=== PATIENT | male | born 1950 | race Caucasian/White ===

== ENCOUNTER 2017-05-01 10:19 | Observation (INO) | payer MEDICARE, OTHER ==
[2017-05-01] VITALS (7 sets, daily range): BP systolic 125–173; BP diastolic 88–115; PULSE 67–79; RESP 16–20; TEMP 97.7–98.6; O2SAT 93–99
[~2017-05-01] VITALS: Ht 177.8 cm; Wt 71.0 kg
[~2017-05-01 10:19] MED LIST: ASPI81TA81; BENETAB PO; DULC100C PO; LOSA50TA PO; MOBI7.5T PO; [UNRECOGNIZED DRUG - CODE] PO; [UNRECOGNIZED DRUG - OTHER] PO
[2017-05-01] MEDS ORDERED: ACYC400T PO (10:50)
--- NOTE | 2017-05-01 11:14 | PD ---
HPI Chief Complaint: Neuro Symptoms/ Deficits Time Seen by Provider: 11:05 Travel History International Travel<30 days: No Contact w/Intl Traveler<30days: No Traveled to known affect area: No History of Present Illness HPI 66-year-old male with history of hypertension, presents to the ER today because he states that he woke up this morning, drove himself to the office and when he got to the office could not remember any of his coworkers names, or his 's phone number. He had no difficulty walking or talking, had no numbness or weakness, or other symptoms. He states that while he has been waiting in the ER , the symptoms are clearing up and he is remembering more people's names. Modifying Factors: None Associated Signs & Symptoms: Disorientation episode Risk Factors: None PFSH Past Medical History Anxiety: Yes Cancer: No Cardiovascular Problems: No Diabetes: No Diminished Hearing: Yes Endocrine: No Genitourinary: No Hepatitis: No Hiatal Hernia: No Hypertension: Yes Immune Disorder: No Musculoskeletal: Yes (ARTHRITIS) Neurologic: No Psychiatric: Yes (VERY CLAUSTROPHOBIC) Reproductive: No Respiratory: Yes (SINUSITIS) Thyroid Disease: No Tetanus Vaccination: > 5 Years ?: Not Past Surgical History AICD: No Body Medical Devices: CERVICAL FUSION Eye Surgery: Yes (REMOVED PTRYGIM L EYE, CATARACT RIGHT EYE) Joint Replacement: Yes (RIGHT HIP) Oral Surgery: Yes (TONSILECTOMY) Pacemaker: No Tonsillectomy: Yes Other Surgery: Yes (NECK FUSION C2-5 2002) Social History Alcohol Use: Yes (liquor nightly) Tobacco Use: No Substance Use: No Allergies-Medications (Allergen,Severity, Reaction): Coded Allergies: Sugars, Metabolically Active (Unverified Adverse Reaction, Intermediate, MUCOUS, 05/01/17) lactose (Unverified Adverse Reaction, Intermediate, MUCOUS, 05/01/17) Reported Meds & Prescriptions Reported Meds & Active Scripts Active Reported Acyclovir 400 Mg Tab 400 Mg PO WEEKLY Dulcolax Stool Softener (Docusate Sodium) 100 Mg Cap 100 Mg PO DAILY Losartan (Losartan Potassium) 50 Mg Tab 50 Mg PO DAILY Aspir-81 (Aspirin) 81 Mg Tabdr [Gh3] 1 Dose PO DAILY [Smooth Move] 1 Dose PO HS Review of Systems Except as stated in HPI: all other systems reviewed are Neg Physical Exam Narrative GENERAL: Well-developed elderly white male patient currently in mild distress at awake and oriented 3. SKIN: Focused skin assessment warm/dry. HEAD: Atraumatic. Normocephalic. EYES: Pupils equal and round. No scleral icterus. No injection or drainage. ENT: No nasal bleeding or discharge. Mucous membranes pink and moist. NECK: Trachea midline. No JVD. CARDIOVASCULAR: Regular rate and rhythm. No murmur appreciated. RESPIRATORY: No accessory muscle use. Clear to auscultation. Breath sounds equal bilaterally. GASTROINTESTINAL: Abdomen soft, non-tender, nondistended. Hepatic and splenic margins not palpable. MUSCULOSKELETAL: No obvious deformities. No clubbing. No cyanosis. No edema. NEUROLOGICAL: Awake and alert. No obvious cranial nerve deficits. Motor grossly within normal limits. Normal speech. No pronator drift. PSYCHIATRIC: Appropriate mood and affect; insight and judgment normal. Data Data Last Documented VS Vital Signs Date Time Temp Pulse Resp B/P (MAP) Pulse Ox O2 Delivery O2 Flow Rate FiO2 05/01/17 11:15 77 20 159/115 (130) 93 05/01/17 10:20 98.6 Room Air Orders Orders Prothrombin Time / Inr (Pt) (05/01/17 11:05) Act Partial Throm Time (Ptt) (05/01/17 11:05) Complete Blood Count With Diff (05/01/17 11:05) Comprehensive Metabolic Panel (05/01/17 11:05) Drug Screen, Random Urine (05/01/17 11:05) Troponin I (05/01/17 11:05) Urinalysis - C+S If Indicated (05/01/17 11:05) Ct Brain W/O Iv Contrast(Rout) (05/01/17 11:05) Ecg Monitoring (05/01/17 11:05) Iv Access Insert/Monitor (05/01/17 11:05) Oximetry (05/01/17 11:05) Sodium Chloride 0.9% Flush (Ns Flush) (05/01/17 11:15) Admit Order (Ed Use Only) (05/01/17 13:11) Aspirin (Aspirin) (05/01/17 13:15) Labs Laboratory Tests Test 05/01/17 11:10 White Blood Count 7.8 TH/MM3 Red Blood Count 4.31 MIL/MM3 Hemoglobin 14.5 GM/DL Hematocrit 42.7 % Mean Corpuscular Volume 99.1 FL Mean Corpuscular Hemoglobin 33.8 PG Mean Corpuscular Hemoglobin Concent 34.1 % Red Cell Distribution Width 13.5 % Platelet Count 282 TH/MM3 Mean Platelet Volume 7.5 FL Neutrophils (%) (Auto) 69.9 % Lymphocytes (%) (Auto) 17.6 % Monocytes (%) (Auto) 11.0 % Eosinophils (%) (Auto) 0.3 % Basophils (%) (Auto) 1.2 % Neutrophils # (Auto) 5.4 TH/MM3 Lymphocytes # (Auto) 1.4 TH/MM3 Monocytes # (Auto) 0.9 TH/MM3 Eosinophils # (Auto) 0.0 TH/MM3 Basophils # (Auto) 0.1 TH/MM3 CBC Comment DIFF FINAL Differential Comment Prothrombin Time 10.9 SEC Prothromb Time International Ratio 1.0 RATIO Activated Partial Thromboplast Time 25.5 SEC Urine Color YELLOW Urine Turbidity CLEAR Urine pH 5.5 Urine Specific [place] 1.024 Urine Protein TRACE mg/dL Urine Glucose (UA) NEG mg/dL Urine Ketones NEG mg/dL Urine Occult Blood SMALL Urine Nitrite NEG Urine Bilirubin NEG Urine Urobilinogen LESS THAN 2.0 MG/DL Urine Leukocyte Esterase NEG Urine RBC 3 /hpf Urine WBC 1 /hpf Urine Hyaline Casts 1 /lpf Urine Mucus FEW /lpf Microscopic Urinalysis Comment CATH-CULT NOT IND Blood Urea Nitrogen 17 MG/DL Creatinine 1.05 MG/DL Random Glucose 110 MG/DL Total Protein 7.7 GM/DL Albumin 3.8 GM/DL Calcium Level 8.8 MG/DL Alkaline Phosphatase 82 U/L Aspartate Amino Transf (AST/SGOT) 17 U/L Alanine Aminotransferase (ALT/SGPT) 21 U/L Total Bilirubin 0.5 MG/DL Sodium Level 138 MEQ/L Potassium Level 4.3 MEQ/L Chloride Level 105 MEQ/L Carbon Dioxide Level 25.2 MEQ/L Anion Gap 8 MEQ/L Estimat Glomerular Filtration Rate 71 ML/MIN Troponin I LESS THAN 0.02 NG/ML Urine Opiates Screen NEG Urine Barbiturates Screen NEG Urine Amphetamines Screen NEG Urine Benzodiazepines Screen NEG Urine Cocaine Screen NEG Urine Cannabinoids Screen NEG MDM Medical Decision Making Medical Screen Exam Complete: Yes Emergency Medical Condition: Yes Medical Record Reviewed: Yes Interpretation(s) EKG shows NSR, no ST elevation or depression, and no arrhythmias. No significant T-wave inversions. Last [address] 05/01/17 1105 Signed Impressions: Service Date/Time: Monday, May 01, 2017 11:35 - CONCLUSION: 1. No acute intracranial abnormality. 2. Isolated lucency involving the calvarium as detailed above. I cannot exclude such etiologies as multiple myeloma or less likely metastatic disease. Foreign Diaz Jr., MD Laboratory Tests Test 05/01/17 11:10 Red Blood Count 4.31 MIL/MM3 (4.50-5.90) Monocytes (%) (Auto) 11.0 % (0.0-8.0) Urine Occult Blood SMALL (NEG) Urine Mucus FEW /lpf (OCC) Random Glucose 110 MG/DL (74-106) Estimat Glomerular Filtration Rate 71 ML/MIN (>89) Troponin I LESS THAN 0.02 NG/ML Differential Diagnosis Altered mental status episode: TIA versus CVA versus ICH versus metabolic issues Narrative Course CAT scan does not show any signs of acute intracranial processes. EKG did not show dysrhythmias. Lab work was otherwise unremarkable. Case was discussed with Dr. Farmer who is patient's PCP and he agrees the patient should be admitted for further evaluation MRI. Case was discussed with Dr. Montague for admission. Diagnosis Primary Impression: TIA (transient ischemic attack) Admitting Information Admitting Physician Requests: Admit Vero North MD May 01, 2017 11:14
[2017-05-01] MEDS ORDERED: SODIUM CHLORIDE 0.9% FLUSH 10 ML FLUSH IVF PRN (11:15)
[2017-05-01 11:32] LABS: AUTOMATED NEUTROPHIL # 5.4 TH/MM3 (1.8-7.7); BASOPHIL # 0.1 TH/MM3 (0-0.2); BASOPHIL % 1.2 % (0.0-2.0); EOSINOPHIL % 0.3 % (0.0-4.0); HEMATOCRIT 42.7 % (39.0-51.0); HEMO FLAGS DIFF FINAL; LYMPH % 17.6 % (9.0-44.0); LYMPHOCYTE # 1.4 TH/MM3 (1.0-4.8); MEAN CELL VOLUME 99.1 FL (80.0-100.0); MEAN CORPUSCULAR HEMOGLOBIN 33.8 PG (27.0-34.0); MEAN CORPUSCULAR HGB CONC 34.1 % (32.0-36.0); NEUT % 69.9 % (16.0-70.0); PLATELET COUNT 282 TH/MM3 (150-450); RED BLOOD COUNT 4.31 MIL/MM3 (4.50-5.90); RED CELL DISTRIBUTION WIDTH 13.5 % (11.6-17.2); WHITE BLOOD COUNT 7.8 TH/MM3 (4.0-11.0)
[2017-05-01 11:34] LABS: BLOOD, URINE SMALL (NEG); GLUCOSE,URINE NEG (NEG); HYALINE CAST, URINE 1 /lpf (RARE); KETONE, URINE NEG (NEG); MUCUS URINE FEW /lpf (OCC); NITRITE,URINE NEG (NEG); PH, URINE 5.5 (5.0-8.5); URINE COLOR YELLOW (YELLW/STRAW)
[2017-05-01 11:35] LABS: COMMENT (UR) CATH-CULT NOT IND; CULTURE IF INDICATED CATH CULTURE NOT IND
[2017-05-01 11:47] LABS: ALT (GPT) 21 U/L (12-78); ANION GAP 8 MEQ/L (5-15); APTT (PATIENT) 25.5 SEC (24.3-30.1); AST (GOT) 17 U/L (15-37); BICARBONATE 25.2 MEQ/L (21.0-32.0); BLOOD UREA NITROGEN 17 MG/DL (7-18); CHLORIDE 105 MEQ/L (98-107); GLOMERULAR FILTRATION RATE 71 ML/MIN (>89); POTASSIUM 4.3 MEQ/L (3.5-5.1); PROTHROMBIN TIME - PATIENT 10.9 SEC (9.8-11.6); SODIUM (NA) 138 MEQ/L (136-145)
[2017-05-01 11:51] LABS: ALKALINE PHOSPHATASE 82 U/L (45-117); TOTAL BILIRUBIN ADULT 0.5 MG/DL (0.2-1.0)
--- NOTE | 2017-05-01 11:53 | RADRPT ---
EXAM DATE/TIME: 05/01/2017 11:35 [facility] COMPARISON: No previous studies available for comparison. INDICATIONS : Altered mental status. RADIATION DOSE: 56.40 CTDIvol (mGy) MEDICAL HISTORY : Hypertension. SURGICAL HISTORY : Fusion, cervical. ENCOUNTER: Initial ACUITY: 1 day PAIN SCALE: 0/10 LOCATION: cranial TECHNIQUE: Multiple contiguous axial images were obtained of the head. Using automated exposure control and adj ustment of the mA and/or kV according to patient size, radiation dose was kept as low as reasonably a chievable to obtain optimal diagnostic quality images. DICOM format image data is available electro nically for review and comparison. FINDINGS: CEREBRUM: The ventricles are normal for age. No evidence of midline shift, mass lesion, hemorrhage or acute in farction. No extra-axial fluid collections are seen. POSTERIOR FOSSA: The cerebellum and brainstem are intact. The 4th ventricle is midline. The cerebellopontine angle i s unremarkable. EXTRACRANIAL: The visualized portion of the orbits is intact. SKULL: There is an isolated 1 cm lucency involving the left parietal bone near the vertex. No associated sof t tissue component. The calvarium is otherwise intact. CONCLUSION: 1. No acute intracranial abnormality. 2. Isolated lucency involving the calvarium as detailed above. I cannot exclude such etiologies as mu ltiple myeloma or less likely metastatic disease. Foreign Diaz Jr., MD on May 01, 2017 at 11:48 Board Certified Radiologist. This report was verified electronically.
[2017-05-01] MEDS ORDERED: LACTULOSE SYRUP 20 GM/30 ML CUP PO PRN (13:15)
[2017-05-01] MEDS ORDERED: ASPIRIN 325 MG TAB PO ONE (13:15)
[2017-05-01] MEDS ORDERED: NALOXONE HCL 0.4 MG/ML AMP IV PUSH PRN (13:15)
[2017-05-01] MEDS ORDERED: MAGNESIUM HYDROXIDE SUSP 30 ML CUP PO PRN (13:15)
[2017-05-01] MEDS ORDERED: ONDANSETRON HCL 4 MG/2 ML VIAL IVP PRN (13:15)
[2017-05-01] MEDS ORDERED: SODIUM CHLORIDE 0.9% FLUSH 10 ML FLUSH IV FLUSH PRN (13:15)
[2017-05-01] MEDS ORDERED: ACETAMINOPHEN 325 MG TAB PO PRN (13:15)
[2017-05-01] MEDS ORDERED: BISACODYL 10 MG SUPP RECTAL PRN (13:15)
[2017-05-01] MEDS ORDERED: SENNOSIDES 8.6 MG TAB PO PRN (13:15)
--- NOTE | 2017-05-01 14:09 | HHI.HP ---
HPI Service [facility] Primary Care Physician Derrek Farmer MD, PhD Admission Diagnosis possible TIA Diagnoses: Chief Complaint: Memory loss Travel History International Travel<30 Days: No Contact w/Intl Traveler <30 Da: No Traveled to Known Affected Are: No History of Present Illness Written by Lianet Donohue, acting as scribe for Dr. Montague on 05/01/17 at 14: 08. This note was transcribed by scribe Lianet Donohue PA-C. I, Dr. Naren Montague personally performed the history, physical exam, and medical decision making; and confirmed the accuracy of the information in the transcribed note. Authenticated by Dr. Naren Montague on 05/01/17 at 14:10. This is a 66-year-old male with past medical history significant for hypertension and IBS who presents to [facility] ED with complaints of transient memory loss x 1 day. Patient states he awoke around 7:00 this morning and reports that he felt "fuzzy". Patient arrived at work around 9am. He states he was able to recognize the faces of his coworkers but was not able to recall their names. He was unable to recall his 's phone number. Patient denies any numbness/tingling or weakness. He denies any slurred speech or facial asymmetry. He states since his admission to the ED, his memory has improved. He reports a similar episode last week when he was unable to recall the name of his dog he's had for the past 5 years. Patient takes Losartan for blood pressure. He reports taking aspirin at home irregularly. In the ED, EKG was reviewed which showed PVCs but no evidence of other arrhythmia. Head CT revealed isolated lucency involving the calvarium. Patient endorses history of claustrophobia and is requesting something to help him relax for the MRI study. Review of Systems Except as stated in HPI: all other systems reviewed are Neg Past Family Social History Past Medical History HTN IBS Past Surgical History Right total hip replacement IM rodding left femur fracture with subsequent hardware removal Cervical spine fusion Reported Medications Acyclovir 400 Mg Tab 400 Mg PO WEEKLY Dulcolax Stool Softener (Docusate Sodium) 100 Mg Cap 100 Mg PO DAILY Losartan (Losartan Potassium) 50 Mg Tab 50 Mg PO DAILY Aspir-81 (Aspirin) 81 Mg Tabdr [Gh3] 1 Dose PO DAILY [Smooth Move] 1 Dose PO HS Allergies: Coded Allergies: Sugars, Metabolically Active (Unverified Adverse Reaction, Intermediate, MUCOUS, 05/01/17) lactose (Unverified Adverse Reaction, Intermediate, MUCOUS, 05/01/17) Active Ordered Medications Current Medications Medications (Trade) Dose Ordered Sig/Genia Route Start Time Stop Time Status Last Admin (NS Flush) 2 ml UNSCH PRN IV FLUSH 05/01/17 13:15 (NS Flush) 2 ml BID IV FLUSH 05/01/17 21:00 (Tylenol) 650 mg Q4H PRN PO 05/01/17 13:15 UNV (Zofran Inj) 4 mg Q6H PRN IVP 05/01/17 13:15 (Narcan Inj) 0.4 mg UNSCH PRN IV PUSH 05/01/17 13:15 (Ya-Colace) 1 tab BID PO 05/01/17 21:00 UNV (Milk Of Magnesia Liq) 30 ml Q12H PRN PO 05/01/17 13:15 UNV (Senokot) 17.2 mg Q12H PRN PO 05/01/17 13:15 UNV (Dulcolax Supp) 10 mg DAILY PRN RECTAL 05/01/17 13:15 (Lactulose Liq) 30 ml DAILY PRN PO 05/01/17 13:15 (Cozaar) 50 mg DAILY PO 05/02/17 09:00 UNV (Ativan Inj) 1 mg ONCE PRN IV PUSH 05/01/17 14:15 UNV Family History Dementia, both parents Social History Patient denies any tobacco use. He admits to alcohol consumption of "a couple of drinks nightly". He denies any illicit drug use. 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 Physical Exam Vital Signs Vital Signs Date Time Temp Pulse Resp B/P (MAP) Pulse Ox O2 Delivery O2 Flow Rate FiO2 05/01/17 12:00 76 20 146/101 (116) 94 05/01/17 11:15 77 20 159/115 (130) 93 05/01/17 10:20 98.6 79 16 173/90 117) 99 Room Air Physical Exam GENERAL: This is a well-nourished, well-developed patient, in no apparent distress. Awake and alert. No facial asymmetry appreciated. SKIN: No rashes, ecchymoses or lesions. Cool and dry. HEAD: Atraumatic. Normocephalic. No temporal or scalp tenderness. EYES: Pupils equal round and reactive. Extraocular motions intact. No scleral icterus. No injection or drainage. ENT: Nose without bleeding, purulent drainage. Throat without erythema, tonsillar hypertrophy or exudate. Uvula midline. Airway patent. NECK: Trachea midline. No lymphadenopathy. Supple, nontender, no meningeal signs. CARDIOVASCULAR: Regular rate and rhythm without murmurs, gallops, or rubs. (+) PVCs. RESPIRATORY: Clear to auscultation. Breath sounds equal bilaterally. No wheezes , rales, or rhonchi. GASTROINTESTINAL: Abdomen soft, non-tender, nondistended. No hepato-splenomegaly , or palpable masses. No guarding. MUSCULOSKELETAL: Extremities without clubbing, cyanosis, or edema. No joint tenderness, effusion, or edema noted. No calf tenderness. NEUROLOGICAL: Awake and alert. Motor and sensory function grossly intact in bilateral upper and lower extremities. Normal speech. Laboratory Laboratory Tests Test 05/01/17 11:10 White Blood Count 7.8 Red Blood Count 4.31 Hemoglobin 14.5 Hematocrit 42.7 Mean Corpuscular Volume 99.1 Mean Corpuscular Hemoglobin 33.8 Mean Corpuscular Hemoglobin Concent 34.1 Red Cell Distribution Width 13.5 Platelet Count 282 Mean Platelet Volume 7.5 Neutrophils (%) (Auto) 69.9 Lymphocytes (%) (Auto) 17.6 Monocytes (%) (Auto) 11.0 Eosinophils (%) (Auto) 0.3 Basophils (%) (Auto) 1.2 Neutrophils # (Auto) 5.4 Lymphocytes # (Auto) 1.4 Monocytes # (Auto) 0.9 Eosinophils # (Auto) 0.0 Basophils # (Auto) 0.1 CBC Comment DIFF FINAL Differential Comment Prothrombin Time 10.9 Prothromb Time International Ratio 1.0 Activated Partial Thromboplast Time 25.5 Urine Color YELLOW Urine Turbidity CLEAR Urine pH 5.5 Urine Specific [place] 1.024 Urine Protein TRACE Urine Glucose (UA) NEG Urine Ketones NEG Urine Occult Blood SMALL Urine Nitrite NEG Urine Bilirubin NEG Urine Urobilinogen LESS THAN 2.0 Urine Leukocyte Esterase NEG Urine RBC 3 Urine WBC 1 Urine Hyaline Casts 1 Urine Mucus FEW Microscopic Urinalysis Comment CATH-CULT NOT IND Blood Urea Nitrogen 17 Creatinine 1.05 Random Glucose 110 Total Protein 7.7 Albumin 3.8 Calcium Level 8.8 Alkaline Phosphatase 82 Aspartate Amino Transf (AST/SGOT) 17 Alanine Aminotransferase (ALT/SGPT) 21 Total Bilirubin 0.5 Sodium Level 138 Potassium Level 4.3 Chloride Level 105 Carbon Dioxide Level 25.2 Anion Gap 8 Estimat Glomerular Filtration Rate 71 Troponin I LESS THAN 0.02 Urine Opiates Screen NEG Urine Barbiturates Screen NEG Urine Amphetamines Screen NEG Urine Benzodiazepines Screen NEG Urine Cocaine Screen NEG Urine Cannabinoids Screen NEG Result Diagram: 05/01/17 1110 05/01/17 1110 Imaging Last Impressions Head CT 05/01/17 1105 Signed Impressions: Service Date/Time: Monday, May 01, 2017 11:35 - CONCLUSION: 1. No acute intracranial abnormality. 2. Isolated lucency involving the calvarium as detailed above. I cannot exclude such etiologies as multiple myeloma or less likely metastatic disease. Foreign Diaz Jr., MD Caprincorey VTE Risk Assessment Caprini VTE Risk Assessment: Mod/High Risk (score >= 2) Caprini Risk Assessment Model Point Value = 1 Point Value = 2 Point Value = 3 Point Value = 5 Age 41-60 Minor surgery BMI > 25 kg/m2 Swollen legs Varicose veins or History of unexplained or recurrent spontaneous Oral contraceptives or hormone replacement Sepsis (< 1 month) Serious lung disease, including pneumonia (< 1 month) Abnormal pulmonary function Acute myocardial infarction Congestive heart failure (< 1 month) History of inflammatory bowel disease Medical patient at bed rest Age 61-74 Arthroscopic surgery Major open surgery (> 45 min) Laparoscopic surgery (> 45 min) Malignancy Confined to bed (> 72 hours) Immobilizing plaster cast Central venous access Age >= 75 History of VTE Family history of VTE Factor V Leiden Prothrombin [id number] Lupus anticoagulant Anticardiolipin antibodies Elevated serum homocysteine Heparin-induced thrombocytopenia Other congenital or acquired thrombophilia Stroke (< 1 month) Elective arthroplasty Hip, pelvis, or leg fracture Acute spinal cord injury (< 1 month) Prophylaxis Regimen Total Risk Factor Score Risk Level Prophylaxis Regimen 0-1 Low Early ambulation 2 Moderate Order ONE of the following: *Sequential Compression Device (SCD) *Heparin 5000 units SQ BID 3-4 Higher Order ONE of the following medications: *Heparin 5000 units SQ TID *Enoxaparin/Lovenox 40 mg SQ daily (WT < 150 kg, CrCl > 30 mL/min) *Enoxaparin/Lovenox 30 mg SQ daily (WT < 150 kg, CrCl > 10-29 mL/min) *Enoxaparin/Lovenox 30 mg SQ BID (WT < 150 kg, CrCl > 30 mL/min) AND/OR *Sequential Compression Device (SCD) 5 or more Highest Order ONE of the following medications: *Heparin 5000 units SQ TID (Preferred with Epidurals) *Enoxaparin/Lovenox 40 mg SQ daily (WT < 150 kg, CrCl > 30 mL/min) *Enoxaparin/Lovenox 30 mg SQ daily (WT < 150 kg, CrCl > 10-29 mL/min) *Enoxaparin/Lovenox 30 mg SQ BID (WT < 150 kg, CrCl > 30 mL/min) AND *Sequential Compression Device (SCD) Assessment and Plan Problem List: (1) TGA (transient global amnesia) ICD Code: G45.4 - Transient global amnesia Status: Acute (2) TIA (transient ischemic attack) ICD Code: G45.9 - Transient cerebral ischemic attack, unspecified Status: Acute Assessment and Plan 66-year-old male with past medical history significant for hypertension and IBS who presents to [facility] ED with complaints of transient memory loss x 1 day. Transient global amnesia - Possible TIA/CVA - Consult Neurology - CT of the head personally reviewed showing I for the lucency involving the calvarium possible etiology of multiple myeloma or less likely metastatic disease. Discussed finding with the patient. Will order bone survey for further evaluation. - Obtain MRI and MRA of the brain. Ultrasound carotid arteries ordered. IV Ativan ordered to help with claustrophobia for MRI study. - Continuous cardiac monitoring - Neuro checks every 4 hours - Obtain fasting lipid profile - Aspirin 81 mg daily Hypertension - BP elevated in the ED - Continue patient on home dose of losartan - Monitor BP IBS - Stable - Monitor DVT prophylaxis - Bilateral SCD/BIGG parsone Discussed Condition With Patient, ED physician Lianet Donohue May 01, 2017 14:09 Jay Montague DO May 01, 2017 14:10
[2017-05-01] MEDS ORDERED: LORazepam 2 MG/ML VIAL IV PUSH PRN (14:15)
--- NOTE | 2017-05-01 15:39 | PD.CONS ---
History of Present Illness Service Neurology Consult Requested By medical Reason for Consult confusion Primary Care Physician Derrek Farmer MD, PhD History of Present Illness 66-year-old male admitted for transient memory loss. He states he was able to recognize the faces of his coworkers but was not able to recall their names. He was unable to recall his 's phone number. Patient denies any numbness/tingling or weakness. He denies any slurred speech or facial asymmetry. last week he forget raphael names of his dogs. no weakness/sensory changes/vision loss/headache associated with this. feels well at present. ++hx of dementia in both parents. in their 80's. glucose 110. ct brain- possible calvarial lesion. does not take aspirin qdaily Review of Systems Except as stated in HPI: all other systems reviewed are Neg Past Family Social History Past Medical History HTN IBS Past Surgical History Right total hip replacement IM rodding left femur fracture with subsequent hardware removal Cervical spine fusion Reported Medications Acyclovir 400 Mg Tab 400 Mg PO WEEKLY Dulcolax Stool Softener (Docusate Sodium) 100 Mg Cap 100 Mg PO DAILY Losartan (Losartan Potassium) 50 Mg Tab 50 Mg PO DAILY Aspir-81 (Aspirin) 81 Mg Tabdr [Gh3] 1 Dose PO DAILY [Smooth Move] 1 Dose PO HS Allergies: Coded Allergies: Sugars, Metabolically Active (Unverified Adverse Reaction, Intermediate, MUCOUS, 05/01/17) lactose (Unverified Adverse Reaction, Intermediate, MUCOUS, 05/01/17) Family History Dementia, both parents Social History Patient denies any tobacco use. He admits to alcohol consumption of "a couple of drinks nightly". He denies any illicit drug use. 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 Review of Systems All other ROS: ROS reviewed as documented in chart Past Family Social History Allergies: Coded Allergies: Sugars, Metabolically Active (Unverified Adverse Reaction, Intermediate, MUCOUS, 05/01/17) lactose (Unverified Adverse Reaction, Intermediate, MUCOUS, 05/01/17) Active Ordered Medications Current Medications Medications (Trade) Dose Ordered Sig/Genia Route Start Time Stop Time Status Last Admin (NS Flush) 2 ml UNSCH PRN IV FLUSH 05/01/17 13:15 (NS Flush) 2 ml BID IV FLUSH 05/01/17 21:00 (Tylenol) 650 mg Q4H PRN PO 05/01/17 13:15 (Zofran Inj) 4 mg Q6H PRN IVP 05/01/17 13:15 (Narcan Inj) 0.4 mg UNSCH PRN IV PUSH 05/01/17 13:15 (Ya-Colace) 1 tab BID PO 05/01/17 21:00 (Milk Of Magnesia Liq) 30 ml Q12H PRN PO 05/01/17 13:15 (Senokot) 17.2 mg Q12H PRN PO 05/01/17 13:15 (Dulcolax Supp) 10 mg DAILY PRN RECTAL 05/01/17 13:15 (Lactulose Liq) 30 ml DAILY PRN PO 05/01/17 13:15 (Cozaar) 50 mg DAILY PO 05/02/17 09:00 (Ativan Inj) 1 mg UNSCH X1 PRN IV PUSH 05/01/17 14:15 05/01/17 23:59 (Ecotrin Ec) 81 mg DAILY PO 05/02/17 09:00 Exam I&O / VS Vital Signs Date Time Temp Pulse Resp B/P (MAP) Pulse Ox O2 Delivery O2 Flow Rate FiO2 05/01/17 14:31 98.4 67 16 148/90 (109) 97 05/01/17 14:23 05/01/17 12:00 76 20 146/101 (116) 94 05/01/17 11:15 77 20 159/115 (130) 93 05/01/17 10:20 98.6 79 16 173/90 (117) 99 Room Air General: Alert and Oriented, No acute distress Eye: EOMI Respiratory: Non-labored respirations Musculoskeletal: ROM Neurologic: Alert, Oriented, Normal sensory, Normal motor, No focal defects, CN II-XII intact, Normal DTR's Psychiatric: Cooperative, Appropriate mood & affect, Normal judgement, Non- suicidal Review/Management Diagnosis/Plan: (1) TGA (transient global amnesia) ICD Codes: G45.4 - Transient global amnesia Status: Acute Plan: etiology: possibly temporal lobe tia vs partial sz. however, i suspect this w/u is going to be negative. ?calvarial lesion- incidental finding? doubt relationship to event. no meningeal signs or symptoms would be concerned about memory lapses occurring related to developing an amnestic mci neuro exam non-focal recs tia w/u ?calvarial lesion aspirin qd eeg d/c planning after above and further outpatient cognitive testing (2) TIA (transient ischemic attack) ICD Codes: G45.9 - Transient cerebral ischemic attack, unspecified Status: Acute Sae Krause MD May 01, 2017 15:39
--- NOTE | 2017-05-01 15:53 | RADRPT ---
EXAM DATE/TIME: 05/01/2017 15:15 [facility] COMPARISON: No previous studies available for comparison. INDICATIONS : Evaluate for bone metastasis. MEDICAL HISTORY : TIA SURGICAL HISTORY : unknown ENCOUNTER: Initial ACUITY: 1 week PAIN SCORE: 0/10 LOCATION: Whole body bone survey FINDINGS: Bone survey was performed of the axial and appendicular skeleton. There is a single lytic lesion involving the left parietal bone of the calvarium. The lytic lesion me asures approximately 1.7 centimeters. The rest the calvarium is intact. There is diffuse primary bony degenerative changes throughout the cervical spine, thoracic spine and lumbar spine. No gross lytic or blastic lesions are seen. There is evidence of previous surgery to th e cervical spine. The bony structures of the ribs are grossly intact. There are some chronic changes involving the righ t clavicle. The pelvis is grossly intact. There is a right hip prosthesis in place. Abnormal appearance involving the mid shaft of the left femur. CONCLUSION: 1. Single well-defined lytic lesion involving the left parietal bone. 2. Abnormal appearance of the midshaft of the left femur. This could be from old healed infection wilfred evie previous trauma versus metastases. 3. Diffuse primary degenerative changes involving the cervical, thoracic and lumbar spine. Josesito Chavez MD on May 01, 2017 at 15:46 Board Certified Radiologist. This report was verified electronically.
--- NOTE | 2017-05-01 18:28 | RADRPT ---
EXAM DATE/TIME: 05/01/2017 17:20 [facility] COMPARISON: CT BRAIN W/O CONTRAST, May 01, 2017, 11:35. INDICATIONS : CVA. Abnormal CT. MEDICAL HISTORY : Hypertension. SURGICAL HISTORY : Fusion, cervical. Left hip. ENCOUNTER: Subsequent ACUITY: 1 day PAIN SCORE: 3/10 LOCATION: cranial Please note a normal MRA of the brain does not entirely exclude the possibility of a small aneurysm, nor the possibility of distal intracranial vessel disease. TECHNIQUE: 3D time of flight MRA was performed. Source images, multiplanar STS MIP, and 3D volume MIP reconstru ctions were reviewed. FINDINGS: No significant vascular malformations, vessel truncation or aneurysmal dilatations are seen except fo r slight atherosclerotic changes involving multiple branches mainly in the left [employer]ICATION [employer]S INSTRUCTOR. 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 Hipolito Waldrop MD on May 01, 2017 at 18:24 Board Certified Radiologist. This report was verified electronically.
--- NOTE | 2017-05-01 20:57 | RADRPT ---
EXAM DATE/TIME: 05/01/2017 20:23 [facility] COMPARISON: No previous studies available for comparison. INDICATIONS : Cerebrovascular accident. MEDICAL HISTORY : Hypertension. IBS. Sinusitis. SURGICAL HISTORY : Tonsillectomy. Orthopedic surgery, neck, right hip, and left femur. C3-4 posterior fusion. Prosta te biopsy. ENCOUNTER: Initial ACUITY: 1 day PAIN SCORE: 2/10 LOCATION: Bilateral neck PEAK SYSTOLIC VELOCITIES (cm/sec): ICA/CCA RATIO: Right: 0.6 Left: 0.9 ICA: Right: 43.8 Left: 54.8 CCA: Right: 75.0 Left: 60.7 ECA: Right: 91.9 Left: 83.8 VERTEBRAL: Right: 34.0 antegrade Left: 62.9 antegrade Elevated flow velocities and ICA/CCA ratios have been found to correlate with increased degrees of vessel stenosis, calculated as percentage of diameter relative to a normal segment of distal ICA/CCA FINDINGS: Antegrade flow is seen in both vertebral arteries. There is mild to moderate atherosclerotic plaquing at the origin of both ICAs without any significant stenosis. CONCLUSION: No evidence for hemodynamically significant stenosis. Hipolito Waldrop MD on May 01, 2017 at 20:54 Board Certified Radiologist. This report was verified electronically.
[2017-05-01] MEDS: DOCUSATE SODIUM 50 MG/SENNA 8.6 MG TAB PO SCH (21:23)
[2017-05-01] MEDS: SODIUM CHLORIDE 0.9% FLUSH 10 ML FLUSH IV FLUSH SCH (21:25)
[2017-05-02] MEDS ORDERED: LORATADINE 10 MG TAB PO ONE (00:15)
[2017-05-02 03:43] VITALS: BP 130/88; PULSE 63; RESP 18; TEMP 98.1; O2SAT 97
[2017-05-02] MEDS ORDERED: LORazepam 2 MG/ML VIAL IV PUSH ONE (07:45)
[2017-05-02 07:54] VITALS: BP 163/100; PULSE 82; RESP 20; TEMP 98; O2SAT 99
[2017-05-02 08:10] VITALS: BP 150/90
--- NOTE | 2017-05-02 08:20 | HHI.PR ---
Review/Management Diagnosis/Plan: (1) TGA (transient global amnesia) ICD Codes: G45.4 - Transient global amnesia Status: Acute Plan: etiology: possibly temporal lobe tia vs partial sz. however, i suspect this w/u is going to be negative. ?calvarial lesion- incidental finding? doubt relationship to event. no meningeal signs or symptoms would be concerned about memory lapses occurring related to developing an amnestic mci neuro exam non-focal mra brain/carotid u/s- no significant occlusion/stenosis recs tests pending tia w/u- mri brain, lipid,echo pending ?calvarial lesion- may need onc eval- defer to medical aspirin qd eeg-pending d/c planning after above and further outpatient cognitive testing (2) TIA (transient ischemic attack) ICD Codes: G45.9 - Transient cerebral ischemic attack, unspecified Status: Acute Subjective Subjective Comments No acute events reported No headache No chest pain No dyspnea Active Medications Current Medications Medications (Trade) Dose Ordered Sig/Genia Route Start Time Stop Time Status Last Admin (NS Flush) 2 ml UNSCH PRN IV FLUSH 05/01/17 13:15 05/01/17 16:57 (NS Flush) 2 ml BID IV FLUSH 05/01/17 21:00 05/01/17 21:25 (Tylenol) 650 mg Q4H PRN PO 05/01/17 13:15 (Zofran Inj) 4 mg Q6H PRN IVP 05/01/17 13:15 (Narcan Inj) 0.4 mg UNSCH PRN IV PUSH 05/01/17 13:15 (Ya-Colace) 1 tab BID PO 05/01/17 21:00 05/01/17 21:23 (Milk Of Magnesia Liq) 30 ml Q12H PRN PO 05/01/17 13:15 (Senokot) 17.2 mg Q12H PRN PO 05/01/17 13:15 (Dulcolax Supp) 10 mg DAILY PRN RECTAL 05/01/17 13:15 (Lactulose Liq) 30 ml DAILY PRN PO 05/01/17 13:15 (Cozaar) 50 mg DAILY PO 05/02/17 09:00 (Ecotrin Ec) 81 mg DAILY PO 05/02/17 09:00 Allergies Allergies Coded Allergies Sugars, Metabolically Active (Unverified Adverse Reaction, Intermediate, MUCOUS, 05/01/17) lactose (Unverified Adverse Reaction, Intermediate, MUCOUS, 05/01/17) Review of Systems All other ROS: ROS reviewed as documented in chart Exam I&O / VS Vital Signs Date Time Temp Pulse Resp B/P (MAP) Pulse Ox O2 Delivery O2 Flow Rate FiO2 05/02/17 08:10 150/90 (110) 05/02/17 07:54 98.0 82 20 163/100 (121) 99 05/02/17 03:43 98.1 63 18 130/88 (102) 97 05/02/17 01:18 Room Air 05/01/17 23:37 97.7 74 18 125/88 (100) 96 05/01/17 20:49 97.8 76 16 142/98 (113) 97 05/01/17 19:09 75 05/01/17 14:31 98.4 67 16 148/90 (109) 97 05/01/17 14:23 05/01/17 12:00 76 20 146/101 (116) 94 05/01/17 11:15 77 20 159/115 (130) 93 05/01/17 10:20 98.6 79 16 173/90 (117) 99 Room Air General: Alert and Oriented, No acute distress Eye: EOMI Respiratory: Non-labored respirations Musculoskeletal: ROM Neurologic: Alert, Oriented, No focal defects, CN II-XII intact Psychiatric: Cooperative, Appropriate mood & affect, Normal judgement Exam Comments looks well, going to mri in wheelchair Objective Micro and Labs Laboratory Tests Test 05/01/17 11:10 05/01/17 17:30 05/01/17 19:31 White Blood Count 7.8 Red Blood Count 4.31 Hemoglobin 14.5 Hematocrit 42.7 Mean Corpuscular Volume 99.1 Mean Corpuscular Hemoglobin 33.8 Mean Corpuscular Hemoglobin Concent 34.1 Red Cell Distribution Width 13.5 Platelet Count 282 Mean Platelet Volume 7.5 Neutrophils (%) (Auto) 69.9 Lymphocytes (%) (Auto) 17.6 Monocytes (%) (Auto) 11.0 Eosinophils (%) (Auto) 0.3 Basophils (%) (Auto) 1.2 Neutrophils # (Auto) 5.4 Lymphocytes # (Auto) 1.4 Monocytes # (Auto) 0.9 Eosinophils # (Auto) 0.0 Basophils # (Auto) 0.1 CBC Comment DIFF FINAL Differential Comment Prothrombin Time 10.9 Prothromb Time International Ratio 1.0 Activated Partial Thromboplast Time 25.5 Urine Color YELLOW Urine Turbidity CLEAR Urine pH 5.5 Urine Specific [place] 1.024 Urine Protein TRACE Urine Glucose (UA) NEG Urine Ketones NEG Urine Occult Blood SMALL Urine Nitrite NEG Urine Bilirubin NEG Urine Urobilinogen LESS THAN 2.0 Urine Leukocyte Esterase NEG Urine RBC 3 Urine WBC 1 Urine Hyaline Casts 1 Urine Mucus FEW Microscopic Urinalysis Comment CATH-CULT NOT IND Blood Urea Nitrogen 17 Creatinine 1.05 Random Glucose 110 Total Protein 7.7 Albumin 3.8 Calcium Level 8.8 Alkaline Phosphatase 82 Aspartate Amino Transf (AST/SGOT) 17 Alanine Aminotransferase (ALT/SGPT) 21 Total Bilirubin 0.5 Sodium Level 138 Potassium Level 4.3 Chloride Level 105 Carbon Dioxide Level 25.2 Anion Gap 8 Estimat Glomerular Filtration Rate 71 Troponin I LESS THAN 0.02 Urine Opiates Screen NEG Urine Barbiturates Screen NEG Urine Amphetamines Screen NEG Urine Benzodiazepines Screen NEG Urine Cocaine Screen NEG Urine Cannabinoids Screen NEG Ammonia 15 Erythrocyte Sedimentation Rate 5 C-Reactive Protein LESS THAN 0.29 Vitamin B12 Level 407 Thyroid Stimulating Hormone 3rd Gen 1.200 Sae Krause MD May 02, 2017 08:20
[2017-05-02] MEDS ORDERED: ASPIRIN EC 81 MG TABEC PO SCH (09:00)
[2017-05-02] MEDS ORDERED: LOSARTAN 50 MG TAB PO SCH (09:00)
[2017-05-02 09:10] LABS: HDL CHOLESTEROL 102.8 MG/DL (40.0-60.0)
[2017-05-02] MEDS: SODIUM CHLORIDE 0.9% FLUSH 10 ML FLUSH IV FLUSH SCH (09:12)
[2017-05-02] MEDS: DOCUSATE SODIUM 50 MG/SENNA 8.6 MG TAB PO SCH (09:12)
--- NOTE | 2017-05-02 09:24 | RADRPT ---
EXAM DATE/TIME: 05/02/2017 08:21 [facility] COMPARISON: CT BRAIN W/O CONTRAST, May 01, 2017, 11:35. INDICATIONS : CVA. Abnormal CT. MEDICAL HISTORY : Hypertension. SURGICAL HISTORY : Fusion, cervical. Left hip. ENCOUNTER: Subsequent ACUITY: 2 day PAIN SCORE: 0/10 LOCATION: head. TECHNIQUE: Multiplanar, multisequence MRI of the brain was performed without contrast. FINDINGS: There is mild central and cortical atrophy with minimal periventricular white matter changes. There is no clinical hemorrhage, acute infarction or mass lesion. Posterior fossa is unremarkable. Orbits and paranasal sinuses are unremarkable. Lucencies in the calvarium appear to be venous lakes. CONCLUSION: Negative for metastatic disease. Central and cortical atrophy with minimal periventr icular matter changes. Negative for acute ischemic event. Santhosh Diego MD FACR on May 02, 2017 at 9:21 Board Certified Radiologist. This report was verified electronically.
[2017-05-02 09:59] VITALS: PULSE 77
[2017-05-02] MEDS ORDERED: THIAMINE HCL 100 MG TAB PO SCH (11:00)
--- NOTE | 2017-05-02 11:30 | HHI.PR ---
Subjective Remarks Patient seen this morning around 10:30 AM. Says he's feeling all right. Had EGD performed. He does report drinking about 4 shots worth of whiskey every night for many many years. He reports a tremor bilaterally for years, which he thought maybe Parkinson's. He says he feels like going home. Says that names is the only thing he forgot. We discussed calvarial lesion which may be secondary to multiple myeloma. Objective Vital Signs Date Time Temp Pulse Resp B/P (MAP) Pulse Ox O2 Delivery O2 Flow Rate FiO2 05/02/17 09:59 77 05/02/17 08:10 150/90 (110) 05/02/17 07:54 98.0 82 20 163/100 (121) 99 05/02/17 03:43 98.1 63 18 130/88 (102) 97 05/02/17 01:18 Room Air 05/01/17 23:37 97.7 74 18 125/88 (100) 96 05/01/17 20:49 97.8 76 16 142/98 (113) 97 05/01/17 19:09 75 05/01/17 14:31 98.4 67 16 148/90 (109) 97 05/01/17 14:23 05/01/17 12:00 76 20 146/101 (116) 94 Result Diagram: 05/01/17 1110 05/01/17 1110 Objective Remarks GENERAL: pt walking in room. Alert and oriented 3. Patient has bilateral tremor. Mild. SKIN: Warm and dry. HEAD: Normocephalic. EYES: No scleral icterus. No injection or drainage. NECK: Supple, trachea midline. No JVD. CARDIOVASCULAR: Regular rate and rhythm without murmurs, gallops, or rubs. RESPIRATORY: Breath sounds equal bilaterally. No accessory muscle use. GASTROINTESTINAL: Abdomen soft, non-tender, nondistended. MUSCULOSKELETAL: No cyanosis, or edema. BACK: Nontender without obvious deformity. No CVA tenderness. A/P Assessment and Plan 66-year-old male with past medical history significant for hypertension and IBS who presents to [facility] ED with complaints of transient memory loss x 1 day. //Transient global amnesia - Possible TIA/CVA - Consult Neurology - CT of the head personally reviewed showing I for the lucency involving the calvarium possible etiology of multiple myeloma or less likely metastatic disease. Discussed finding with the patient. Will order bone survey for further evaluation. - Obtain MRI and MRA of the brain. Ultrasound carotid arteries ordered. IV Ativan ordered to help with claustrophobia for MRI study. - Continuous cardiac monitoring - Neuro checks every 4 hours - Obtain fasting lipid profile. High HDL, normal LDL. -b12 within normal limits. - Aspirin 81 mg daily. EEG pending. //Hypertension - BP elevated in the ED - Continue patient on home dose of losartan - Monitor BP //Excessive alcohol use //Bilateral tremor on exam. Suspect mild alcohol withdrawal.// Patient drinks: 4 whiskey drinks per night. -Give Librium 1 on 05/02. The monitor. Patient will go back to drinking 2 drinks per night, wean down to 1. We discussed the effects of long-term drinking, and he conveys understanding. Have advised him to start on thiamine. //Possible multiple myeloma. //lytic lesion of left parietal bone //Abnormal appearance of the left femur. Possible metastasis. Patient will follow-up with primary care. //IBS - Stable - Monitor //DVT prophylaxis - Bilateral SCD/BIGG juarez Discharge Planning Discharge home when cleared by neurology. EEG is pending. Kenroy Childers MD May 02, 2017 11:30
[2017-05-02] MEDS ORDERED: GNP100TA3 PO (11:36)
[2017-05-02 12:50] VITALS: BP 121/73; PULSE 80; RESP 18; TEMP 97.4; O2SAT 95
--- NOTE | 2017-05-02 12:50 | ECHRPT ---
Indication: CVA/TIA CONCLUSIONS Normal left ventricular size. Wall thickness is measured at the upper limits of normal. The left ventricular systolic function is normal with an estimated ejection fraction in the range of 55-60%. Mitral annular calcification is present. Trace mitral valve regurgitation. BP: 163 / 100 HR: 82 Rhythm: MEASUREMENTS (Male / Female) Normal Values Technical Quality:Good 2D ECHO LV Diastolic Diameter PLAX 4.0 cm 4.2 - 5.9 / 3.9 - 5.3 cm LV Systolic Diameter PLAX 3.1 cm IVS Diastolic Thickness 1.1 cm 0.6 - 1.0 / 0.6 - 0.9 cm LVPW Diastolic Thickness 0.8 cm 0.6 - 1.0 / 0.6 - 0.9 cm LV Relative Wall Thickness 0.5 RV Internal Dim ED PLAX 2.1 cm LA Systolic Diameter LX 3.4 cm 3.0 - 4.0 / 2.7 - 3.8 cm M-MODE Aortic Root Diameter MM 3.2 cm AV Cusp Separation MM 1.8 cm DOPPLER AV Peak Velocity 137.0 cm/s AV Peak Gradient 7.5 mmHg LVOT Peak Velocity 73.1 cm/s LVOT Peak Gradient 2.1 mmHg Mitral E Point Velocity 57.8 cm/s Mitral A Point Velocity 84.4 cm/s Mitral E to A Ratio 0.7 TR Peak Velocity 201.0 cm/s TR Peak Gradient 16.2 mmHg Right Atrial Pressure 10.0 mmHg Pulmonary Artery Systolic Pressu 26.2 mmHg Right Ventricular Systolic Press 26.2 mmHg FINDINGS LEFT VENTRICLE Normal left ventricular size. Wall thickness is measured at the upper limits of normal. The left ventricular systolic function is normal with an estimated ejection fraction in the range of 55-60%. RIGHT VENTRICLE Normal right ventricular size and systolic function. LEFT ATRIUM The left atrial size is normal. RIGHT ATRIUM The right atrial size is normal. ATRIAL SEPTUM Normal atrial septal thickness without atrial level shunting by limited color doppler interrogation. MITRAL VALVE Mitral annular calcification is present. Trace mitral valve regurgitation. AORTIC VALVE Trileaflet aortic valve. No aortic valve stenosis or regurgitation. TRICUSPID VALVE Structurally normal tricuspid valve. No tricuspid valve stenosis or regurgitation. PULMONARY VALVE No pulmonary valve regurgitation or stenosis. VESSELS The inferior vena cava is normal in size. PERICARDIUM No pericardial effusion. Willian Reed MD (Electronically Signed) Final Date:02 May 2017 12:49
--- NOTE | 2017-05-02 13:14 | MB ---
cc: RJ REYNOLDS M.D. DATE OF CONSULTATION 05/02/[address] Childers REASON FOR CONSULTATION Oncology consulted to render opinion regarding patient with a lytic skull lesion. HISTORY OF PRESENT ILLNESS The patient is a very pleasant 66-year-old male who presented to the hospital with a complaint of memory loss. He stated on Sunday morning when he went to his office, he could not recall the name all his co-workers. When he tried to call his , he could not recall the phone number. He stated that he had a similar episode about two weeks prior when he could not recall the name on his three dogs. He was thought to have had a transient ischemic attack. He had a CT of the head done which showed a 1 cm lucency in the left parietal bone suspicious for possible multiple myeloma. The patient denies any bone pain or headache. He has no constitutional symptoms. Denied chest pain, palpitation, shortness of breath or cough. He denies nausea, vomiting, or abdominal pain. PAST MEDICAL HISTORY 1. Hypertension 2. Irritable bowel syndrome PAST SURGICAL HISTORY 1. Right total hip replacement 2. Left femur rodding and subsequent removal of the hardware 3. C-spine fusion FAMILY HISTORY Noncontributory SOCIAL HISTORY Denies tobacco use. He drinks 3-4 whiskey a day. ALLERGIES LACTOSE CURRENT MEDICATIONS 1. Thiamine 2. Cozaar 3. Aspirin 4. Ya-Colace REVIEW OF SYSTEMS CONSTITUTIONAL: Negative. EYES: Negative. ENT: Negative. CARDIOVASCULAR: No chest pain or palpitations. RESPIRATORY: Denies shortness of breath or cough. GI: Negative. : Negative. MUSCULOSKELETAL: As above. HEMATOLOGY: As above. NEUROLOGIC: As above. ENDOCRINE: Negative. HEMATOLOGY: Negative. PSYCHIATRIC: Negative. PHYSICAL EXAMINATION VITAL SIGNS: Temperature 98, blood pressure 150/90. GENERAL: He is alert, oriented x3 in no acute distress. HEENT: Atraumatic, normocephalic. Pupils equal, round and reactive to light. Extraocular muscle intact. No sclerae icterus. Oropharynx, dry mucosa. No lesion or thrush or mucositis. NECK: No thyromegaly. No palpable masses. LYMPHATICS: No palpable cervical, clavicular, axillary or inguinal lymph nodes. CARDIOVASCULAR: Regular S1-S2. No murmur. LUNGS: Clear to auscultation without wheezing or rhonchi. ABDOMEN: Soft, nontender. Could not palpate liver or spleen. EXTREMITIES: No cyanosis, no clubbing, edema or calf tenderness. BACK: No paravertebral tenderness. SKIN: No rash or petechiae. NEUROLOGIC: Nonfocal. LABORATORY DATA Reviewed ASSESSMENT 1. Solitary lytic lesion in the left parietal skull noted incidentally on CT scan. He had a bone survey which showed a left parietal skull lesion. There was abnormal appearance of the midshaft of the left femur which could be due to old fracture. The patient had a rodding of the left femur done previously after a fracture of the femur. His CBC is normal. His renal function is also normal and total protein and calcium are normal. This does not appear to be multiple myeloma. He also has no significant symptoms to suggest metastatic disease. I went over the CT findings and lab finding with the patient. I told him he needs further workup. The patient, however, is eager to go home. He is already dressed and ready to be discharged. He does not want further workup at this point. I told him to follow up at the oncology clinic for further evaluation. He will need a workup for multiple myeloma. I also recommend getting a CT of the chest, abdomen and pelvis to see if he has any primary tumor and check a PSA. I gave the patient my office number and he stated that he will call to set up an appointment. 2. Transient global amnesia versus transient ischemic attack. He has been evaluated by neurology. RECOMMENDATIONS I recommend further workup for multiple myeloma. I also recommend getting a CT scan and check tumor marker. The patient, however, does not want anything done in the hospital. I told him to followup at the oncology clinic for follow up evaluation. He voices understanding. Thank you, Dr. Childers, for asking us to see this patient. MD ELIZABETH Gao/NAZANIN /12:48 PM /12:58 PM DOM
--- NOTE | 2017-05-02 14:26 | EKG ---
Date Performed: 05/01/2017 Time Performed: 11:04:04 PTAGE: 66 years EKG: Sinus rhythm WITH OCCASIONAL VENTRICULAR PREMATURE COMPLEXES BORDERLINE ECG PREVIOUS TRACING : 04/27/2017 09.04 DOCTOR: Vel Eden Interpretating Date/Time 05/02/2017 14:19:32
[2017-05-02 16:31] LABS: HEMOGLOBIN A1b 0.7 %; HEMOGLOBIN Ao 85.1 %; HEMOGLOBIN F 1.1 %; HEMOGLOBIN LA1C 2.5 %; HEMOGLOBIN P3 3.7 %
--- NOTE | 2017-05-02 17:21 | MG ---
cc: YOBANI LANE MD Lab No: Date: 05/02/2017 Age: Sex: M Race: DATE OF [address] Krause. MEDICAL HISTORY 1. Hypertension. 2. Irritable bowel syndrome. 3. Right total hip replacement. 4. C3-C4 posterior fusion. 5. Cataract. 6. Depression, anxiety. 7. Alcohol and caffeine use. 8. Transient memory loss. MEDICATIONS 1. Claritin. 2. Cozaar. 3. Aspirin. DESCRIPTION The background activity is 8-9 Hz alpha located posteriorly bilateral and symmetrical. Hyperventilation was not done. The EEG recording is contaminated by excess movement artifact. Photic stimulation did not elicit a driving response. Hyperventilation was not done. There were no electrographic seizures or epileptiform discharges noted. INTERPRETATION This is a normal awake EEG. Absence of electrographic seizures or epileptiform discharges does not exclude the diagnosis of epilepsy. Clinical correlation is recommended. Yobani Lane MD RGO/KK /4:28 PM /5:05 PM [facility] [place] [facility]
== END 2017-05-02 15:45 | disposition home or self-care (01) ==
LOC: NEPC 10:19 → NEDA 13:13 → NEPFCDU 14:23
PROVIDERS: ADMIT Internal Medicine; ATTEND Internal Medicine
DX: G45.4 Transient global amnesia (principal); I10 Essential (primary) hypertension; I49.3 Ventricular premature depolarization; F10.10 Alcohol abuse, uncomplicated; R25.1 Tremor, unspecified; K58.9 Irritable bowel syndrome, unspecified; R09.89 Other specified symptoms and signs involving the circulatory and respiratory systems; R79.89 Other specified abnormal findings of blood chemistry; M89.8X0 Other specified disorders of bone, multiple sites; R79.1 Abnormal coagulation profile; M19.90 Unspecified osteoarthritis, unspecified site; F41.9 Anxiety disorder, unspecified; Z79.82 Long term (current) use of aspirin; Z51.81 Encounter for therapeutic drug level monitoring; Z81.8 Family history of other mental and behavioral disorders
CPT/HCPCS: 70450; 70544; 70551; 77075; 80053; 80061; 80307; 81001; 82140; 82607; 83036; 84443; 84484; 85025; 85610; 85652; 85730; 86140; 93005; 93306; 93880; 95819; 96374; 96376; 99285; G0378; J2060